=== PATIENT | male | born 1985 | race Two or more races ===

== ENCOUNTER 2016-07-08 20:33 | Emergency (ER) | payer OTHER ==
[~2016-07-08] VITALS: Ht 157.5 cm; Wt 68.0 kg
[2016-07-08 20:58] VITALS: BP 129/68
[2016-07-08] MEDS ORDERED: SILVADENE20 GM TP (21:09)
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
[2016-07-08] MEDS ORDERED: Norco 5mg/325mg tab ORAL ONE (21:15)
[2016-07-08] MEDS ORDERED: Silver Sulfadiazine Cream 25gm TOPIC ONE (21:15)
== END 2016-07-08 21:30 | disposition home or self-care (01) ==
LOC: EMR 21:00
DX: T23.252A Burn of second degree of left palm, initial encounter (principal); X15.0XXA Contact with hot stove (kitchen), initial encounter; Y92.511 Restaurant or cafe as the place of occurrence of the external cause; Y99.0 Civilian activity done for income or pay
CPT/HCPCS: 99283